=== PATIENT | female | born 1970 | race Caucasian/White ===

== ENCOUNTER 2025-05-10 09:27 | Emergency (ER) | payer BC, SELFPAY ==
[2025-05-10 09:32] VITALS: BP 142/91
--- NOTE | 2025-05-10 13:29 | ED.GENMED ---
History of Present Illness
General
Chief Complaint: Musculo-Skeletal Complaint
Source: patient
Exam Limitations: none
Time Seen by Provider: 05/10/25 10:19
Nursing documentation reviewed up to this point in time: agreed with
History of Present Illness
History of Present Illness:
Patient is a 54-year-old female who presents to the emergency department with left shoulder pain which has been ongoing for the past week. She believes that symptoms may have began after spending a significant of time in the garden last week. Pain
worsened greatly yesterday. She describes relatively severe pain in left shoulder with very limited ROM. Symptoms are definitely exacerbated by abduction and extension of left arm.
She does feel pain occasionally radiate into her left forearm.
No fevers, chills, or obvious erythema or swelling of left upper extremity. No numbness or tingling in left arm. ROM is limited by pain rather than weakness.
No associated chest pain or shortness of breath.
No recent falls.
Review of Systems
Review of Systems
Allergies reviewed?: Yes
All Other Systems: ROS reviewed and negative except as documented in HPI and ROS
Phy Exam
Physical Exam
Physical Exam:
Vitals: Hypertensive, otherwise patient's vital signs are stable. Afebrile
General: Patient is tearful, holding left shoulder in mild distres
Skin: Warm and dry, no rashes or lesions
Head: Normocephalic, atraumatic
Throat: Protecting airway
Neck: Normal ROM, no cervical spine tenderness
Cardiac: Regular rate
Pulm: No apparent respiratory distress
Abdomen: Nondistended
Extremities: Significant diffuse tenderness of left shoulder or scapular area. No obvious deformity, swelling, or ecchymoses of LUE. Very limited active and passive ROM in left arm secondary to pain. Full ROM in left elbow. No bony tenderness of
left forearm or wrist. 2+ palpable radial and brachial pulse with normal capillary refill.
Neuro: Grossly intact
Psychiatric: Normal affect.
Course
Orders/Labs/Results
Orders:
Orders
05/10/25 10:37
Shoulder, Left 2 View CR [CR Shoulder - Left Min 2 View*] Urgent
Comment:
Reason For Exam: Left shoulder/scapular pain
05/10/25 12:05
Sling Left-Treatment ONCE
Vital Signs
Initial and Last Documented VS:
Initial Vital Signs
Temp Pulse Resp BP Pulse Ox
97.6 F 92 18 142/91 97
05/10/25 09:32 05/10/25 09:32 05/10/25 09:32 05/10/25 09:32 05/10/25 09:32
Last Documented Vital Signs
Temp Pulse Resp BP Pulse Ox
97.6 F 92 18 142/91 97
05/10/25 09:32 05/10/25 09:32 05/10/25 09:32 05/10/25 09:32 05/10/25 13:29
MDM/Problems Addressed
Differential Diagnosis Includes:
Not limited to: rotator cuff strain/ tendinopathy, AC joint separation, radiculopathy, adhesive capsulitis, etc
MDM/Problems Addressed:
54-year-old female presents with worsening left shoulder pain for the past week. Denies any known injury or trauma. No fever, chills, rash, or other signs of infection. Exam reveals very limited range of motion due to pain. No visible deformity,
swelling, or overlying skin changes. Neurovascular exam of the left upper extremity is intact with preserved sensation, motor function, and distal pulses.
X-ray of the left shoulder shows no acute osseous abnormalities. Given the clinical presentation, differential includes rotator cuff tendinopathy, bursitis, or possible cervical radiculopathy. No signs of septic joint or fracture.
Patient discharged in stable condition with a sling for comfort, pain management plan, and outpatient orthopedic follow-up. Return precautions reviewed.
Chronic conditions affecting care:
N/A
Acute Exacerbation and/or Progression of Chronic Illness:
N/A
*Radiology
Radiology exam reviewed: radiology read reviewed
*Pulse Oximetry
SaO2: 97
Oxygen Mode of Delivery: Room air
Patient hypoxic: no
*EKG
Interpreted by ED Provider?: NA
*Manager Intensive Care Unit Interpretation
Rate: Manager Intensive Care Unit- N/A
*Critical Care Note
Total Time (30-74mins, 75-104mins- exclusive of procedures): Not Applicable
ED Attending Note
-
Portions of this chart may have been created with voice recognition software.� Occasional wrong word or��sound alike� substitutions may have occurred due to the inherent limitations of voice recognition software.
Discharge Plan
Departure
Patient Disposition: Home (Routine Discharge)
Date of Disposition: 05/10/25
Time of Disposition: 12:05
Patient with high blood pressure during this ER visit?: Yes
Condition: Good
Discharge Problem:
Acute pain of left shoulder
Instructions: Shoulder pain - ED (DC), BLOOD PRESSURE
Prescriptions:
New
tramadol 50 mg tablet
50 mg PO Q6H PRN (Reason: Pain) Qty: 10 0RF
Referrals:
Jeffrey Otto MD [Active, Orthopedics] - Next open appointment
UNKNOWN - PT DOES,NOT KNOW [Family Provider]
Activity Restrictions/Additional Instructions:
RETURN TO THE EMERGENCY DEPARTMENT WITH ANY INTRACTABLE PAIN, SIGNIFICANT SWELLING OR REDNESS OF LEFT UPPER EXTREMITY, NUMBNESS/TINGLING IN LEFT HAND OR FINGERS, FEVERS, CHEST PAIN OR SHORTNESS OF BREATH, WORSENING IN CURRENT SYMPTOMS, OR ANY OTHER
CONCERNS
- As discussed�the x-ray of your left shoulder showed no acute abnormalities today.
- Please be sure to remove shoulder sling multiple times per day and range your shoulder joint. You can take Tylenol and/or Motrin as needed for pain. Continue to apply ice/heat. A prescription for tramadol has been sent to your pharmacy which
you can take for intractable pain. This may cause drowsiness and you should not take prior to driving.
- Follow-up with orthopedics for further evaluation/management to ensure that your symptoms are improving. You would likely require MRI imaging for further evaluation.
Monitor your symptoms closely and return to the emergency department with any acute worsening/new symptoms or any other concerns
Interventions
Interventions:
*Risk Screen - Suicide Last Done: 05/10/25 09:32
*General Assessment Last Done: 05/10/25 09:32
*Neglect/Abuse Screening Last Done: 05/10/25 09:32
*ED- Fall Risk Assessment Last Done: 05/10/25 12:38
*ED COVID-19 Vaccine History Last Done: 05/10/25 12:38
*ED Influenza Vaccine History Last Done: 05/10/25 12:38
*Nursing Disposition Last Done: 05/10/25 12:40
ED-Musculoskeletal Assessment Last Done: 05/10/25 10:52
Discharge Date and Time
Discharge Date/Time: 05/10/25 12:44
Print Language: ROMANSH
== END 2025-05-10 12:44 | disposition home or self-care (01) ==
LOC: EMR 09:27
PROVIDERS: EMERGENCY PHYSICIAN Emergency Medicine
DX: M25.512 Pain in left shoulder (principal); R03.0 Elevated blood-pressure reading, without diagnosis of hypertension
CPT/HCPCS: 99283; 73030

== ENCOUNTER 2025-06-14 16:56 | Emergency (ER) | payer SELFPAY ==
[2025-06-14 16:59] VITALS: BP 139/72
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
== END 2025-06-14 18:19 | disposition home or self-care (01) ==
LOC: EMR 16:56
PROVIDERS: EMERGENCY PHYSICIAN Emergency Medicine
DX: S93.401A Sprain of unspecified ligament of right ankle, initial encounter (principal); V49.40XA Driver injured in collision with unspecified motor vehicles in traffic accident, initial encounter; Y92.410 Unspecified street and highway as the place of occurrence of the external cause
CPT/HCPCS: 99283; 73564; 73610